=== PATIENT | female | born 1980 | race Caucasian/White ===

== ENCOUNTER 2022-04-05 13:10 | Day surgery (SDC) | payer SELFPAY ==
[~2022-04-05] VITALS: Ht 165.1 cm; Wt 97.3 kg
[~2022-04-05 13:10] MED LIST: ALBUTEROL0.83 MG/ML IH; AMOXICILLIN 50500 MG PO; ASPIRIN 81M81 MG/TA2 PO; BACTRIM DS 8001 TAB PO; BENADRYL25 M2; CEFTIN500 MG PO; CEPHALEXIN500 M1 PO; CIPRO 500MG TA500 MG PO; CLARITIN 1010 MG/TAB PO; CRANBERRY CONC500 MG PO; DAYQUIL COLD/FL1 SGL PO; DIFLUCAN 100MG100 MG PO; ECHINACEA100 MG PO; FISH OIL500 MG PO; FLAGYL500 MG PO; FLAXSEED OIL1 CAP PO; FOLIC ACID1 MG PO; GENTAMICIN EYE D5 ML OU; LORTAB 5/500 501 TAB PO; MAGIC MOUTH PO; METRONIDAZOLE500 MG PO; MOTRIN 600600 MG/TAB PO; MOTRIN 800800 MG/TAB PO; MUCINEX 60600 MG/TA1 PO; MULTIPLE VITAMI1 CAP PO; NO HOME MEDICATIONS; NORCO 325 MG-51 TAB PO; PERCOCET 325 MG1 TA2 PO; PERCOCET 5/321 UDTAB PO; PHENERGAN 25 TA25 MG PO; PRENATAL; PRENATAL1 TA1 PO; PRIMROSE OIL1 SGL PO; TUSS PO; TYLENOL SINUS 31 TAB PO; VIT C; VIT E; ZITHROMAX Z PA250 MG PO; ZOVIRAX 200MG200 MG PO; [UNRECOGNIZED DRUG - OTHER]; [UNRECOGNIZED DRUG - OTHER] IO
[2022-04-05 15:11] VITALS: BP 145/98; PULSE 98; TEMP 98.5
[2022-04-05] MEDS ORDERED: FLOMAX 0.40.4 MG/CAP PO (17:09)
[2022-04-05] MEDS ORDERED: ROXICODONE 55 MG/TAB PO (17:10)
[2022-04-05 17:45] VITALS: BP 143/89; PULSE 86
--- NOTE | 2022-04-05 17:56 | NUR ---
PT BROUGHT TO MEDICAL UNIT AT THIS TIME. POST OP VSS. PT DENIES ANY PAIN WITH URINATION. TOLERATING SIPS AND ICE CHIPS AT THIS TIME. PT OREDERING MEAL TRAY. WILL CONTINUE TO MONITOR.
[2022-04-05 18:00] VITALS: BP 131/91; PULSE 85
[2022-04-05 18:15] VITALS: BP 130/85; PULSE 73
[2022-04-05 18:30] VITALS: BP 130/93; PULSE 84
--- NOTE | 2022-04-05 19:43 | NUR ---
THE PATIENT IS ANXIOUS TO LEAVE THIS EVENING. SHE STATES SHE IS FEELING GREAT. THE PATIENT HAS EATEN, DRANK FLUIDS, URINATED AND WALKED THE RAIN WAYS. INFORMED THE PATIENT THIS RN WOULD NEED A COUPLE MORE SETS OF POST OP VITAL SIGNS TO ENSURE STABLIZATION AND THEN SHE COULD DISCHARGE. NO OTHER CONCERNS.
--- NOTE | 2022-04-05 20:05 | NUR ---
PT HAS BEEN WALKED OUT BY PCT AT THIS TIME.
[2022-04-05 20:29] VITALS: BP 143/89; PULSE 87; TEMP 98.2
== END 2022-04-05 20:05 | disposition home or self-care (01) ==
LOC: SDCO 13:10
DX: N20.1 Calculus of ureter (principal); Z87.891 Personal history of nicotine dependence; Z79.899 Other long term (current) drug therapy
CPT/HCPCS: C1769; C2617; J0690; J1100; J2405; J2704; J3010; J7120